=== PATIENT | female | born 1965 | race Caucasian/White ===

== ENCOUNTER → 2017-01-29 | Outpatient (CLI) | payer OTHER ==
[~2017-01-29] MED LIST: ALLEGRA ALLERG180 MG PO; AMMONIUM LACTA140 GM TP; BUSPAR 5MG TABLE5 MG PO; CELEXA40 MG PO; DULERA 100 MCG8.8 GM INH; HABITROL 21 MG P1 EA TD; KLOR-CON M1010 MEQ PO; LASIX 40 MG TAB40 MG PO; LASIX40 MG PO; LEVOTHYROXINE125 MCG PO; LEVOTHYROXINE137 MCG PO; LOPRESSOR50 MG PO; METHOCARBAMOL750 MG PO; MIRALAX17 GM PO; NEURONTIN 400400 MG PO; NOVOLOG100 UNIT/1 SQ; PHENERGAN 25 MG25 M1 PO; POTASSIUM CHLO10 ME2 PO; PREMARIN0.625 MG PO; PRILOSEC OTC20 MG PO; PROTONIX 40 MG40 M1 PO; SENNOSIDES-DOC1 EACH PO; SENOKOT-S TABL1 EACH PO; TRAZODONE HCL50 MG PO; TYLENOL325 MG PO; VASOTEC10 MG PO; VENTOLIN HFA 66.7 GM INH; VENTOLIN/PROVE0.5 ML INH; VISTARIL25 MG PO; VOLTAREN EC 7575 MG PO; ZOCOR20 MG PO; ZOFRAN ODT 4 MG4 MG PO; ZYRTEC10 MG PO
== END ==
LOC: HEART 5 14:17
DX: J44.9 Chronic obstructive pulmonary disease, unspecified (principal)
CPT/HCPCS: 94060; 94729

== ENCOUNTER → 2017-01-30 | Outpatient (CLI) | payer OTHER | LOC: RT 10:19 | DX: J44.9 Chronic obstructive pulmonary disease, unspecified (principal); R09.02 Hypoxemia | CPT/HCPCS: 36600; 82803 ==

== ENCOUNTER 2017-03-01 10:19 | Observation (INO) | payer OTHER ==
[~2017-03-01] VITALS: Ht 162.6 cm; Wt 112.5 kg
[~2017-03-01 10:19] MED LIST changes: -ALLEGRA ALLERG180 MG PO; -AMMONIUM LACTA140 GM TP; -DULERA 100 MCG8.8 GM INH; -HABITROL 21 MG P1 EA TD; -LASIX 40 MG TAB40 MG PO; -LEVOTHYROXINE137 MCG PO; -METHOCARBAMOL750 MG PO; -POTASSIUM CHLO10 ME2 PO; -PROTONIX 40 MG40 M1 PO; -SENNOSIDES-DOC1 EACH PO; -VENTOLIN HFA 66.7 GM INH; -VENTOLIN/PROVE0.5 ML INH; -ZOFRAN ODT 4 MG4 MG PO
[2017-03-01 11:20] LABS: HEMOGLOBIN 13.6 gm/dl (12.3-15.3); RED BLOOD COUNT 4.08 M/UL (4.00-5.10); WHITE BLOOD COUNT 5.4 K/UL (4.5-11.0)
[2017-03-01 11:43] LABS: BUN/CREATININE RATIO 13 (0-10)
[2017-03-02] MEDS ORDERED: DULERA 100 MCG8.8 GM INH (13:46)
[2017-03-02] MEDS ORDERED: LASIX 40 MG TAB40 MG PO (20:06)
[2017-03-02] MEDS ORDERED: LEVOTHYROXINE137 MCG PO (20:07)
[2017-03-02] MEDS ORDERED: POTASSIUM CHLO10 ME2 PO (20:08)
[2017-03-02] MEDS ORDERED: SENNOSIDES-DOC1 EACH PO (20:09)
[2017-03-02] MEDS ORDERED: VOLTAREN EC 7575 MG PO (20:10)
[2017-06-13] MEDS ORDERED: ALLEGRA ALLERG180 MG PO (21:10)
[2017-06-13] MEDS ORDERED: PROTONIX 40 MG40 M1 PO (21:11)
[2017-06-13] MEDS ORDERED: VENTOLIN/PROVE0.5 ML INH (21:12)
[2017-06-13] MEDS ORDERED: HABITROL 21 MG P1 EA TD (21:13)
[2017-06-13] MEDS ORDERED: VENTOLIN HFA 66.7 GM INH (21:13)
[2017-06-13] MEDS ORDERED: AMMONIUM LACTA140 GM TP (21:14)
[2017-06-13] MEDS ORDERED: METHOCARBAMOL750 MG PO (21:15)
[2017-06-13] MEDS ORDERED: ZOFRAN ODT 4 MG4 MG PO (21:15)
== END 2017-03-02 20:36 | disposition home or self-care (01) ==
LOC: ER1 10:19 → MED SURG 4 13:31 → ZEROF 13:31 → MED SURG 4 15:05
PROVIDERS: Physician Assistant; ADMIT Internal Medicine
DX: R07.89 Other chest pain (principal); J44.9 Chronic obstructive pulmonary disease, unspecified; E11.65 Type 2 diabetes mellitus with hyperglycemia; I10 Essential (primary) hypertension; M19.90 Unspecified osteoarthritis, unspecified site; E03.9 Hypothyroidism, unspecified; K21.9 Gastro-esophageal reflux disease without esophagitis; I25.10 Atherosclerotic heart disease of native coronary artery without angina pectoris; R09.02 Hypoxemia; E66.9 Obesity, unspecified; E78.5 Hyperlipidemia, unspecified; F17.210 Nicotine dependence, cigarettes, uncomplicated; Z98.1 Arthrodesis status; Z87.39 Personal history of other diseases of the musculoskeletal system and connective tissue; Z79.4 Long term (current) use of insulin; Z79.899 Other long term (current) drug therapy; Z96.651 Presence of right artificial knee joint; Z68.41 Body mass index [BMI] 40.0-44.9, adult; Z88.7 Allergy status to serum and vaccine
CPT/HCPCS: ECHO; 36415; 71010; 72040; 78452; 80053; 80061; 82550; 82553; 82962; 83874; 84484; 85025; 93005; 93017; 93306; 96374; 96375; 99285; A9502; G0378; J1650; J2270; J2405; J2785

== ENCOUNTER 2017-03-08 10:39 | Emergency (ER) | payer OTHER ==
[~2017-03-08 10:39] MED LIST changes: +DULERA 100 MCG8.8 GM INH; +LASIX 40 MG TAB40 MG PO; +LEVOTHYROXINE137 MCG PO; +POTASSIUM CHLO10 ME2 PO; +SENNOSIDES-DOC1 EACH PO
[2017-03-08 11:56] LABS: HEMOGLOBIN 14.5 gm/dl (12.3-15.3); RED BLOOD COUNT 4.34 M/UL (4.00-5.10)
[2017-03-08 12:16] LABS: BUN/CREATININE RATIO 18 (0-10)
[2017-06-13] MEDS ORDERED: ALLEGRA ALLERG180 MG PO (21:10)
[2017-06-13] MEDS ORDERED: PROTONIX 40 MG40 M1 PO (21:11)
[2017-06-13] MEDS ORDERED: VENTOLIN/PROVE0.5 ML INH (21:12)
[2017-06-13] MEDS ORDERED: HABITROL 21 MG P1 EA TD (21:13)
[2017-06-13] MEDS ORDERED: VENTOLIN HFA 66.7 GM INH (21:13)
[2017-06-13] MEDS ORDERED: AMMONIUM LACTA140 GM TP (21:14)
[2017-06-13] MEDS ORDERED: ZOFRAN ODT 4 MG4 MG PO (21:15)
[2017-06-13] MEDS ORDERED: METHOCARBAMOL750 MG PO (21:15)
== END 2017-03-08 17:07 | disposition home or self-care (01) ==
LOC: ER1 10:39
PROVIDERS: Physician Assistant
DX: M54.2 Cervicalgia (principal); R07.9 Chest pain, unspecified; M54.10 Radiculopathy, site unspecified; E11.9 Type 2 diabetes mellitus without complications; J44.9 Chronic obstructive pulmonary disease, unspecified; I10 Essential (primary) hypertension; Z96.41 Presence of insulin pump (external) (internal); Z79.4 Long term (current) use of insulin
CPT/HCPCS: 36415; 71020; 80053; 82550; 82553; 83874; 84484; 85025; 85379; 93005; 96372; 99284; J1885

== ENCOUNTER → 2017-07-14 | Outpatient (CLI) | payer OTHER ==
[~2017-07-14] MED LIST changes: +ALLEGRA ALLERG180 MG PO; +AMMONIUM LACTA140 GM TP; +HABITROL 21 MG P1 EA TD; +METHOCARBAMOL750 MG PO; +PROTONIX 40 MG40 M1 PO; +VENTOLIN HFA 66.7 GM INH; +VENTOLIN/PROVE0.5 ML INH; +ZOFRAN ODT 4 MG4 MG PO
== END ==
LOC: KOH-I 08:18
DX: R10.32 Left lower quadrant pain (principal)
CPT/HCPCS: 73502; 76705

== ENCOUNTER 2020-11-06 13:28 | Emergency (ER) | payer OTHER ==
[~2020-11-06] VITALS: Ht 162.6 cm; Wt 112.5 kg
[~2020-11-06 13:28] MED LIST changes: +ADMELOG100 UNIT/1 SC; +ALBUTEROL1.25 MG/3 INH; +ALLERGY RELIEF180 MG PO; +AMOXICILLIN500 MG PO; +ASPIRIN EC81 MG PO; +BASAGLAR K100 UNIT/1 SC; +BUSPIRONE HCL5 MG PO; +CARAFATE 1 GM TA1 GM PO; +CELEXA10 MG PO; -CELEXA40 MG PO; +CLOPIDOGREL75 MG PO; +CODEINE PO; +COLACE 100MG C100 MG PO; +CYMBALTA 20 MG20 MG PO; +DESYREL 50 MG T50 MG PO; +DOCUSATE SODIU100 MG PO; +DULOXETINE HCL20 MG PO; +EFFEXOR XR37.5 MG PO; +FEXOFENADINE H180 MG PO; +FLONASE 0.05% N16 GM; +FUROSEMIDE40 MG PO; +GABAPENTIN800 MG PO; +IBUPROFEN600 MG PO; +IBUPROFEN800 MG PO; +K-DUR TAB 10 M10 MEQ PO; +LEVAQUIN500 MG PO; +LEVEMIR100 UNIT/1 SQ; -LEVOTHYROXINE137 MCG PO; +LEVOTHYROXINE200 MC1 PO; +LISINOPRIL10 MG PO; +MAPAP325 MG PO; +MEDROL DOSEPAK 24 MG PO; +METOPROLOL SUCC50 MG PO; +METOPROLOL TART25 MG PO; +NICOTINE PATCH1 EAC2 TOP; +NITROGLYCERIN0.4 MG SL; +NOVOLOG 10100 UNITS/ INJ; +NOVOLOG100 UNIT/1 SC; +ONDANSETRON HCL4 MG PO; +PANTOPRAZOLE SO40 MG PO; +PROMETHAZINE HC25 M1 PO; +PROVENTIL HFA6.7 GM INH; +ROBAXIN-750750 MG PO; +SEROQUEL25 MG PO; +SIMVASTATIN20 MG PO; +SYNTHROID175 MCG PO; +TOPROL XL50 MG PO; +TRAZODONE HCL100 MG PO; +TYLENOL 500 MG500 MG PO; +TYLENOL PO; +ULTRAM50 MG PO; +VASOTEC 10 MG T10 MG PO
[2020-11-06 14:46] LABS: HEMOGLOBIN 14.3 gm/dl (12.3-15.3); RED BLOOD COUNT 4.65 M/UL (4.00-5.10); WHITE BLOOD COUNT 12.2 K/UL (4.5-11.0)
[2020-11-06 15:10] LABS: BUN/CREATININE RATIO 18 (0-10)
[2020-11-06] MEDS ORDERED: ZOCOR20 MG PO (16:33)
[2020-11-06 20:30] LABS: BUN/CREATININE RATIO 22 (0-10)
[2020-11-07 03:13] LABS: HEMOGLOBIN 12.4 gm/dl (12.3-15.3); RED BLOOD COUNT 4.08 M/UL (4.00-5.10); WHITE BLOOD COUNT 9.3 K/UL (4.5-11.0)
[2020-11-07 03:28] LABS: BUN/CREATININE RATIO 23 (0-10)
[2020-11-07 08:45] LABS: BUN/CREATININE RATIO 26 (0-10)
[2020-11-07 14:13] LABS: BUN/CREATININE RATIO 22 (0-10)
[2020-11-07 20:28] LABS: BUN/CREATININE RATIO 21 (0-10)
== END 2020-11-08 13:50 | disposition home or self-care (01) ==
LOC: ER1 13:28 → CDU 15:57
PROVIDERS: Emergency Medicine; Internal Medicine
DX: E11.10 Type 2 diabetes mellitus with ketoacidosis without coma (principal); R65.10 Systemic inflammatory response syndrome (SIRS) of non-infectious origin without acute organ dysfunction; I10 Essential (primary) hypertension; J44.9 Chronic obstructive pulmonary disease, unspecified; E87.2 Acidosis; I82.409 Acute embolism and thrombosis of unspecified deep veins of unspecified lower extremity; I25.10 Atherosclerotic heart disease of native coronary artery without angina pectoris; E03.9 Hypothyroidism, unspecified; G89.4 Chronic pain syndrome; F17.200 Nicotine dependence, unspecified, uncomplicated; Z79.01 Long term (current) use of anticoagulants; Z88.7 Allergy status to serum and vaccine; Z91.14 Patient's other noncompliance with medication regimen; Z98.890 Other specified postprocedural states; Z79.899 Other long term (current) drug therapy; Z79.02 Long term (current) use of antithrombotics/antiplatelets; Z79.82 Long term (current) use of aspirin; Z20.828 Contact with and (suspected) exposure to other viral communicable diseases
CPT/HCPCS: 71045; 80048; 80053; 81001; 82009; 82550; 82553; 82800; 82962; 83605; 83690; 83735; 83874; 84484; 85025; 87040; 93005; 96372; 96374; 96375; 96376; 99285; J1644; J2405; J2550; J2765; J3480; J7030; U0002

== ENCOUNTER 2020-12-24 13:33 | Emergency (ER) | payer OTHER ==
[2020-12-24 14:47] LABS: HEMOGLOBIN 14.5 gm/dl (12.3-15.3); RED BLOOD COUNT 4.61 M/UL (4.00-5.10); WHITE BLOOD COUNT 7.1 K/UL (4.5-11.0)
[2020-12-24 15:30] LABS: BUN/CREATININE RATIO 30 (0-10)
== END 2020-12-24 19:00 | disposition home or self-care (01) ==
LOC: ER1 13:33
PROVIDERS: Student in an Organized Health Care Education/Training Program
DX: E10.649 Type 1 diabetes mellitus with hypoglycemia without coma (principal); I10 Essential (primary) hypertension; Z20.822 Contact with and (suspected) exposure to COVID-19; F17.210 Nicotine dependence, cigarettes, uncomplicated; Z88.7 Allergy status to serum and vaccine; Z79.899 Other long term (current) drug therapy; Z79.4 Long term (current) use of insulin
CPT/HCPCS: 0240U; 71045; 80053; 81001; 82550; 82553; 82962; 83874; 84439; 84443; 84484; 85025; 93005; 99284

== ENCOUNTER → 2021-01-10 | Outpatient (CLI) | payer OTHER ==
[2021-01-10 11:19] LABS: BUN/CREATININE RATIO 27 (0-10)
== END ==
LOC: ECHO 09:00
PROVIDERS: Internal Medicine Cardiovascular Disease
DX: I49.5 Sick sinus syndrome (principal); I25.5 Ischemic cardiomyopathy; R60.9 Edema, unspecified; I08.1 Rheumatic disorders of both mitral and tricuspid valves; R93.1 Abnormal findings on diagnostic imaging of heart and coronary circulation; Z95.0 Presence of cardiac pacemaker
CPT/HCPCS: ECHO; 36415; 80048; 83880; 93306